=== PATIENT | male | born 1970 | race Caucasian/White ===

== ENCOUNTER → 2016-10-25 | Outpatient (CLI) | payer MEDICARE | LOC: LAB 10:14 | DX: H61.22 Impacted cerumen, left ear (principal); H10.021 Other mucopurulent conjunctivitis, right eye; Q90.9 Down syndrome, unspecified; R39.89 Other symptoms and signs involving the genitourinary system; E78.5 Hyperlipidemia, unspecified ==

== ENCOUNTER → 2016-11-11 | Outpatient (CLI) | payer MEDICARE | LOC: RAD 11:38 | DX: R13.12 Dysphagia, oropharyngeal phase (principal) ==

== ENCOUNTER → 2017-12-15 | Outpatient (CLI) | payer MEDICARE ==
[2017-12-15 12:43] LABS: BASO # 0.1 (0.02-0.10); EOS % 0.8 % (0.0-4.0); HEMATOCRIT 46.1 % (42.0-52.0); LYMPH# 1.6 (1.50-4.00); MEAN CELL VOLUME 97 fl (78-100); MEAN CORPUSCULAR HEMOGLOBIN 34 pg (27-31); MEAN CORPUSCULAR HGB CONC 35 g/dL (33-37); MEAN PLATELET VOLUME 9.4 fl (7.4-10.4); MONO # 0.5 (0.20-0.80); NEU # 3.1 (1.40-6.50); PLATELET COUNT 158 K/mm3 (130-400); RED BLOOD COUNT 4.74 M/mm3 (4.20-5.60); RED CELL DISTRIBUTION WIDTH 15.3 % (11.5-14.5); WHITE BLOOD COUNT 5.3 K/mm3 (4.8-10.8)
[2017-12-15 13:02] LABS: URINE APPEARANCE CLEAR; URINE BILIRUBIN NEGATIVE (NEGATIVE); URINE BLOOD NEGATIVE (NEGATIVE); URINE COLOR YELLOW; URINE GLUCOSE NEGATIVE (NEGATIVE); URINE KETONE NEGATIVE (NEGATIVE); URINE LEUKOCYTE ESTERASE NEGATIVE (NEGATIVE); URINE NITRATE NEGATIVE (NEGATIVE); URINE PROTEIN(semi-quant) NEGATIVE (NEGATIVE); URINE UROBILINOGEN NORMAL (NORMAL); URINE WBC 0-1 /hpf (0-3)
[2017-12-15 13:12] LABS: ALBUMIN 3.4 g/dL (3.5-5.0); BUN/CREATININE RATIO 15.1 (6.0-26.0); CALCIUM 8.8 mg/dL (8.4-10.2); POTASSIUM 4.4 mmol/L (3.6-5.0); TOTAL BILIRUBIN 0.5 mg/dL (0.2-1.3); TOTAL PROTEIN 6.5 g/dL (6.3-8.2)
[2017-12-15 14:09] LABS: ERYTHROCYTE SEDIMENTATION RATE 7 mm/hr (0-15)
[2017-12-15 20:07] LABS: C-REACTIVE PROTEIN XXX
== END ==
LOC: RAD 11:47
PROVIDERS: Nurse Practitioner Family
DX: R22.32 Localized swelling, mass and lump, left upper limb (principal); Z88.0 Allergy status to penicillin

== ENCOUNTER → 2018-06-08 | Outpatient (CLI) | payer MEDICARE ==
[2018-06-08 14:41] LABS: ALBUMIN 3.5 g/dL (3.5-5.0); CALCIUM 8.6 mg/dL (8.4-10.2); POTASSIUM 4.3 mmol/L (3.6-5.0); TOTAL BILIRUBIN 0.5 mg/dL (0.2-1.3); TOTAL PROTEIN 6.5 g/dL (6.3-8.2)
== END ==
LOC: LAB 13:56
PROVIDERS: Internal Medicine Interventional Cardiology
DX: Z79.899 Other long term (current) drug therapy (principal)